=== PATIENT | male | born 1990 | race Caucasian/White ===

== ENCOUNTER 2017-01-31 19:30 | Emergency (ER) | payer SELFPAY ==
[2017-01-31 20:09] VITALS: BP 116/64
--- NOTE | 2017-01-31 22:36 | EDM.PDOC ---
ED HPI GENERAL MEDICAL PROBLEM - General Chief Complaint: Lower Extremity Injury/Pain Stated Complaint: KNEE Time Seen by Provider: 01/31/17 21:30 Source of Information: Reports: Patient History Limitations: Reports: No Limitations - History of Present Illness INITIAL COMMENTS - FREE TEXT/NARRATIVE: C/o pain to outer right knee for past 2 weeks after moving washer. pain worse when bending ocassional radiation down lower leg, Does not recall twisting or knee giving out. States he was in argument at time and just moved washer quickly. Has been wearing knee sleeve but has not taken anything for pain. Knee not reported to feel weak or "give out. Duration: Week(s): Location: Reports: Lower Extremity, Right Quality: Reports: Sharp Severity: Mild Improves with: Reports: Immobilization Worsens with: Reports: Movement Associated Symptoms: Reports: No Other Symptoms Left Knee Pain Score (Numeric/FACES): 4 - Related Data Allergies Allergy/AdvReac Type Severity Reaction Status Date / Time No Known Allergies Allergy Verified 01/31/17 19:59 Home Meds: Home Meds . [No Known Home Meds] 01/31/17 [History] Past Medical History Musculoskeletal History: Reports: Fracture Other Musculoskeletal History: 9th rib, left side Psychiatric History: Reports: Suicide Attempt - Infectious Disease History Infectious Disease History: Reports: Chicken Pox Social & Family History - Family History Family Medical History: Noncontributory - Tobacco Use Smoking Status *Q: Current Every Day Smoker Years of Tobacco use: 7 Packs/Tins Daily: 0.3 - Caffeine Use Caffeine Use: Reports: Coffee - Recreational Drug Use Recreational Drug Use: Yes Review of Systems - Review of Systems Review Of Systems: ROS reveals no pertinent complaints other than HPI. Musculoskeletal: Reports: Joint Pain (right knee). Denies: Joint Swelling Skin: Reports: No Symptoms Trauma Exam - Physical Exam Exam: See Below Exam Limited By: No Limitations General Appearance: Reports: Alert, No Apparent Distress Head: Reports: Atraumatic, Normocephalic Eyes: Bilateral Eye: EOMI Ears: Reports: Normal External Exam Throat/Mouth: Reports: Normal Voice Neck: Reports: Full Range of Motion Cardiovascular: Reports: Normal Peripheral Pulses Extremities: No Evidence of Injury, Joint Effusion (slight crepitus ), Pain with Movement (right lateral knee greatest with flexion beyond approximately 75 depgrees. mild discomfort with lateral stess. no laxity.) Neurologic: Reports: Alert, Normal Mood/Affect, Oriented x 3 Skin: Reports: Normal Color, Warm/Dry. Denies: Ecchymosis Course - Vital Signs Last Recorded V/S: Last Vital Signs Temp 99.3 F 01/31/17 20:00 Pulse 67 01/31/17 20:00 Resp 18 01/31/17 20:00 BP 116/64 01/31/17 20:00 Pulse Ox 98 01/31/17 20:00 - Radiology Interpretation Free Text/Narrative:: right knee, mild effusion no fracture dislocation Departure - Departure Time of Disposition: 22:33 Disposition: Home, Self-Care 01 Condition: good Clinical Impression: Sprain of knee - Discharge Information Instructions: Knee Sprain, [id number] Forms: ED Department Discharge Additional Instructions: tylenol or ibuprofen for discomfort ice to knee 15-20 minutes per use knee sleeve or chanel wrap to knee for comfort follow up in clinic 2 weeks if continued pain
== END 2017-01-31 22:38 | disposition home or self-care (01) ==
LOC: DL.ED 19:30
DX: S83.91XA Sprain of unspecified site of right knee, initial encounter (principal); F17.210 Nicotine dependence, cigarettes, uncomplicated; X58.XXXA Exposure to other specified factors, initial encounter
CPT/HCPCS: 73562-LT; 99282; 99283

== ENCOUNTER 2019-11-08 17:06 | Emergency (ER) | payer SELFPAY ==
[2019-11-08 17:40] VITALS: BP 126/85; PULSE 71
[2019-11-08 18:39] LABS: CHLORIDE,CL 105 mmol/L (101-111); SODIUM,NA 139 mmol/L (135-145)
--- NOTE | 2019-11-08 19:02 | EDM.PDOC ---
Scribed by Adela Lynn 11/08/19 1780 for Aldair Martino NP ED HPI GENERAL MEDICAL PROBLEM - General Chief Complaint: ENT Problem Stated Complaint: WEAK/HEADACHE/DIZZY/NAUSEA Time Seen by Provider: 11/08/19 18:02 Source of Information: Reports: Patient, RN, RN Notes Reviewed History Limitations: Reports: No Limitations - History of Present Illness INITIAL COMMENTS - FREE TEXT/NARRATIVE: Patient is a 28-year-old male who presents to ER with complaints of sinus pressures x3 weeks, dizziness, weakness and headache and runny nose on and off x9 days. He denies any fever, chills, chest pain, palpitations, vomiting, diarrhea, constipation. He admits to nausea and shortness of breath. He took 2 Excedrin migraine without relief. He smokes cigarettes and marijuana. Denies alcohol consumption or illicit drugs. Onset: Gradual Duration: Constant Location: Reports: Generalized Quality: Reports: Ache Severity: Mild Improves with: Reports: None Worsens with: Reports: None Associated Symptoms: Reports: No Other Symptoms Treatments DEVELOPMENT SPEC: Reports: Other (see below) Other Treatments DEVELOPMENT SPEC: excedrin migraine formula 2 tabs Right Frontal Head Pain Score (Numeric/FACES): 3 - Related Data Allergies Allergy/AdvReac Type Severity Reaction Status Date / Time No Known Allergies Allergy Verified 11/08/19 17:40 Home Meds: Home Meds . [No Known Home Meds] 01/31/17 [History] Past Medical History HEENT History: Reports: Head, Sinusitis, Other (See Below) Other HEENT History: migraines Cardiovascular History: Reports: None Respiratory History: Reports: None Gastrointestinal History: Reports: None Genitourinary History: Reports: None Musculoskeletal History: Reports: Fracture Other Musculoskeletal History: 9th rib, left side Neurological History: Reports: Migraines Psychiatric History: Reports: None, Suicide Attempt Endocrine/Metabolic History: Reports: None Hematologic History: Reports: None Immunologic History: Reports: None Oncologic (Cancer) History: Reports: None Dermatologic History: Reports: None - Infectious Disease History Infectious Disease History: Reports: Chicken Pox - Past Surgical History Head Surgeries/Procedures: Reports: None HEENT Surgical History: Reports: None Cardiovascular Surgical History: Reports: None Respiratory Surgical History: Reports: None GI Surgical History: Reports: None Social & Family History - Family History Family Medical History: Noncontributory - Tobacco Use Smoking Status *Q: Current Every Day Smoker Years of Tobacco use: 12 Packs/Tins Daily: 0.5 Second Hand Smoke Exposure: No - Caffeine Use Caffeine Use: Reports: Coffee, Energy Drinks, Tea - Recreational Drug Use Recreational Drug Use: Yes Recreational Drug Type: Reports: Marijuana/Hashish ED ROS GENERAL - Review of Systems Review Of Systems: Comprehensive ROS is negative, except as noted in HPI. ED EXAM, DIZZINESS - Physical Exam Exam: See Below Exam Limited By: No Limitations General Appearance: Alert, WD/WN, No Apparent Distress Eye Exam: Bilateral Eye: EOMI, Normal Inspection, PERRL Ears: Normal External Exam, Normal Canal, Hearing Grossly Normal, Normal TMs Nose: Normal Inspection, Normal Mucosa, No Blood Throat/Mouth: Normal Inspection, Normal Lips, Normal Teeth, Normal Gums, Normal Oropharynx, Normal Voice, No Airway Compromise Head Exam: Atraumatic, Normocephalic Neck: Normal Inspection, Supple, Non-Tender, Full Range of Motion Respiratory/Chest: No Respiratory Distress, Lungs Clear, Normal Breath Sounds, No Accessory Muscle Use, Chest Non-Tender Cardiovascular: Normal Peripheral Pulses, Regular Rate, Rhythm, No Edema, No Gallop, No JVD, No Murmur, No Rub GI/Abdominal: Normal Bowel Sounds, Soft, Non-Tender, No Organomegaly, No Distention, No Abnormal Bruit, No Mass (Male) Exam: Deferred Rectal (Males) Exam: Deferred Neurological: Alert, Normal Mood/Affect, Normal Dorsiflexion, CN II-XII Intact, Normal Plantar Flexion, Normal Gait, Normal Reflexes, No Motor/Sensory Deficits , Oriented x 3 Back Exam: Normal Inspection, Full Range of Motion, NT Psychiatric: Normal Affect, Normal Mood Skin Exam: Warm, Dry, Intact, Normal Color, No Rash Course - Vital Signs Last Recorded V/S: Last Vital Signs Temp 98.5 F 11/08/19 17:34 Pulse 71 11/08/19 17:34 Resp 18 11/08/19 17:34 BP 126/85 11/08/19 17:34 Pulse Ox 98 11/08/19 17:34 - Orders/Labs/Meds Orders: Active Orders 24 hr Category Date Time Status Chest 2V [CR] Stat Exams 11/08/19 18:12 Ordered Labs: Laboratory Tests 11/08/19 11/08/19 Range/Units 18:16 18:16 WBC 6.6 (5.0-10.0) 10^3/uL RBC 4.50 L (4.6-6.2) 10^6/uL Hgb 13.5 L (14.0-18.0) g/dL Hct 39.8 L (40.0-54.0) % MCV 88.4 (80-100) fL MCH 30.0 (27.0-34.0) pg MCHC 33.9 (33.0-35.0) g/dL Plt Count 217 (150-450) 10^3/uL Neut % (Auto) 46.1 (42.2-75.2) % Lymph % (Auto) 40.4 (20.5-50.1) % [place] % (Auto) 9.3 H (2-8) % Eos % (Auto) 3.3 H (1.0-3.0) % Baso % (Auto) 0.9 (0.0-1.0) % Sodium 139 (135-145) mmol/L Potassium 4.0 (3.6-5.0) mmol/L Chloride 105 (101-111) mmol/L Carbon Dioxide 26.0 (21.0-31.0) mmol/L Anion Gap 12.0 BUN 17 (7-18) mg/dL Creatinine 0.8 (0.6-1.3) mg/dL Est Cr Clr Drug Dosing 121.20 mL/min Estimated GFR (MDRD) > 60 BUN/Creatinine Ratio 21.25 Glucose 81 (74-105) mg/dL Calcium 9.1 (8.4-10.2) mg/dl Total Bilirubin 0.5 (0.2-1.0) mg/dL AST 18 (10-42) IU/L ALT 11 (10-60) IU/L Alkaline Phosphatase 48 (42-121) IU/L Total Protein 7.2 (6.7-8.2) g/dl Albumin 4.8 (3.2-5.5) g/dl Globulin 2.4 Albumin/Globulin Ratio 2.00 - Radiology Interpretation Free Text/Narrative:: Chest x-ray: No acute abnormality. See rad report. - Re-Assessments/Exams Free Text/Narrative Re-Assessment/Exam: Lab and x-ray results discussed with the patient. Encouraged sinus with Netti. RX for Flonase one spray in each nostril b.i.d. sent with patient. Tylenol and Ibuprofen for discomfort. Push fluids. Claritin or Zyrtec 10 mg daily. Departure - Departure Time of Disposition: 19:01 Disposition: Home, Self-Care 01 Condition: Good Clinical Impression: Sinusitis - Discharge Information Instructions: Sinusitis, Adult, [id number] Forms: ED Department Discharge Additional Instructions: Encouraged sinus with Netti. RX for Flonase one spray in each nostril b.i.d. sent with patient. Tylenol and Ibuprofen for discomfort. Push fluids. Claritin or Zyrtec 10 mg daily. Follow up with PCP in the clinic. Sepsis Event Note - Evaluation Sepsis Screening Result: No Definite Risk - Focused Exam Vital Signs: Vital Signs Temp Pulse Resp BP Pulse Ox 11/08/19 17:34 98.5 F 71 18 126/85 98 Date Exam was Performed: 11/08/19 Time Exam was Performed: 19:02 - My Orders Last 24 Hours: My Active Orders 11/08/19 18:12 Chest 2V [CR] Stat - Assessment/Plan Last 24 Hours: My Active Orders 11/08/19 18:12 Chest 2V [CR] Stat I have read and agree with the documentation that has been completed regarding this visit. By signing this record, I attest that the documentation was completed in my physical presence and is an accurate record of the encounter.
== END 2019-11-08 19:10 | disposition home or self-care (01) ==
LOC: DL.ED 17:06
DX: J32.9 Chronic sinusitis, unspecified (principal); F17.210 Nicotine dependence, cigarettes, uncomplicated
CPT/HCPCS: 36415; 71046; 80053; 85025; 87804; 99283; 99285-25

== ENCOUNTER 2020-05-10 16:45 | Emergency (ER) | payer SELFPAY ==
[2020-05-10 19:17] VITALS: BP 103/75; PULSE 77
[2020-05-10] MEDS ORDERED: Ketorolac 30 MG/ML SDV IVPUSH ONE (19:51)
[2020-05-10] MEDS ORDERED: Metoclopramide 10 MG/2 ML SDV IVPUSH ONE (19:52)
[2020-05-10] MEDS ORDERED: diphenhydrAMINE 50 MG/ML SDV IVPUSH ONE (19:52)
[2020-05-10] MEDS ORDERED: Sodium Chloride 0.9% 1,000 ML IV ONE (19:52)
--- NOTE | 2020-05-10 19:59 | EDM.PDOC ---
ED HPI GENERAL MEDICAL PROBLEM - General Chief Complaint: General Stated Complaint: VOMITING,SEVEREHEADACHE,CANT,KEEP,DOWN,FOOORWATER Time Seen by Provider: 05/10/20 19:54 Source of Information: Reports: Patient History Limitations: Reports: No Limitations - History of Present Illness INITIAL COMMENTS - FREE TEXT/NARRATIVE: patient presents with headache, nausea and vomiting since this morning. He has a history of migraine headaches for which he take Excedrin. This has not helped him today. He notes vomiting multiple times today. Locates the headache behind his right eye. It is a constant pain. pain is exacerbated by loud noise and light. Denies neck stiffness, fever, chills, shortness of breath, diarrhea, constipation, abdominal pain. Onset: Today Duration: Constant Location: Reports: Head Quality: Reports: Ache, Dull Associated Symptoms: Reports: Headaches Treatments ANIMAL WARDEN: Reports: Other (see below) (excederin ) Head Pain Score (Numeric/FACES): 10 - Related Data Allergies Allergy/AdvReac Type Severity Reaction Status Date / Time No Known Allergies Allergy Verified 05/10/20 17:17 Home Meds: Home Meds . [No Known Home Meds] 01/31/17 [History] Past Medical History HEENT History: Reports: Head, Sinusitis, Other (See Below) Other HEENT History: migraines Cardiovascular History: Reports: None Respiratory History: Reports: None Gastrointestinal History: Reports: None Genitourinary History: Reports: None Musculoskeletal History: Reports: Fracture Other Musculoskeletal History: 9th rib, left side Neurological History: Reports: Migraines Psychiatric History: Reports: None, Suicide Attempt Endocrine/Metabolic History: Reports: None Hematologic History: Reports: None Immunologic History: Reports: None Oncologic (Cancer) History: Reports: None Dermatologic History: Reports: None - Infectious Disease History Infectious Disease History: Reports: Chicken Pox - Past Surgical History Head Surgeries/Procedures: Reports: None HEENT Surgical History: Reports: None Cardiovascular Surgical History: Reports: None Respiratory Surgical History: Reports: None GI Surgical History: Reports: None Social & Family History - Family History Family Medical History: Noncontributory - Tobacco Use Smoking Status *Q: Current Every Day Smoker Years of Tobacco use: 16 Packs/Tins Daily: 1 - Caffeine Use Caffeine Use: Reports: Coffee - Recreational Drug Use Recreational Drug Use: Yes Recreational Drug Type: Reports: Marijuana/Hashish ED ROS GENERAL - Review of Systems Review Of Systems: See Below Constitutional: Reports: No Symptoms HEENT: Reports: No Symptoms Respiratory: Reports: No Symptoms Cardiovascular: Reports: No Symptoms Endocrine: Reports: No Symptoms GI/Abdominal: Reports: Nausea, Vomiting. Denies: Black Stool, Bloody Stool, Diarrhea, Melena : Reports: No Symptoms Musculoskeletal: Reports: No Symptoms Skin: Reports: No Symptoms Neurological: Reports: Headache. Denies: Numbness, Paresthesia Psychiatric: Reports: No Symptoms Hematologic/Lymphatic: Reports: No Symptoms Immunologic: Reports: No Symptoms ED EXAM, GENERAL - Physical Exam Exam: See Below General Appearance: Mild Distress Eye Exam: Bilateral Eye: Normal Inspection, PERRL Ear Exam: Bilateral Ear: Auricle Normal, Canal Normal, TM normal Nose: Normal Inspection, Normal Mucosa, No Blood Throat/Mouth: Normal Inspection, Normal Lips, Normal Teeth, Normal Gums, Normal Oropharynx, Normal Voice, No Airway Compromise Head: Atraumatic, Normocephalic. No: Sinus Tenderness Neck: Normal Inspection, Supple, Non-Tender, Full Range of Motion Respiratory/Chest: No Respiratory Distress, Lungs Clear, Normal Breath Sounds, No Accessory Muscle Use, Chest Non-Tender Cardiovascular: Normal Peripheral Pulses, Regular Rate, Rhythm, No Edema, No Gallop, No JVD, No Murmur, No Rub GI/Abdominal: Normal Bowel Sounds, Soft, Non-Tender, No Organomegaly, No Distention, No Abnormal Bruit, No Mass (Male) Exam: Deferred Rectal (Males) Exam: Deferred Back Exam: Normal Inspection, Full Range of Motion, NT Extremities: Normal Inspection, Normal Range of Motion, Non-Tender, Normal Capillary Refill, No Pedal Edema Neurological: Alert, Oriented, CN II-XII Intact, Normal Cognition, Normal Gait, Normal Reflexes, No Motor/Sensory Deficits Psychiatric: Normal Affect, Normal Mood Skin Exam: Warm, Dry, Intact, Normal Color, No Rash Lymphatic: No Adenopathy Course - Vital Signs Text/Narrative:: 1 L NS bolus, Reglan, Benadryl and Toradol IV pushes given. Patient feels better. His headache is 2/10 right now. Last Recorded V/S: Last Vital Signs Temp 97.4 F 05/10/20 19:15 Pulse 77 05/10/20 19:15 Resp 18 05/10/20 19:15 BP 103/75 05/10/20 19:15 Pulse Ox 98 05/10/20 19:15 - Orders/Labs/Meds Labs: Laboratory Tests 05/10/20 05/10/20 Range/Units 20:03 20:03 WBC 6.9 (5.0-10.0) 10^3/uL RBC 4.93 (4.6-6.2) 10^6/uL Hgb 14.6 (14.0-18.0) g/dL Hct 42.5 (40.0-54.0) % MCV 86.2 (80-100) fL MCH 29.6 (27.0-34.0) pg MCHC 34.4 (33.0-35.0) g/dL Plt Count 231 (150-450) 10^3/uL Neut % (Auto) 56.3 (42.2-75.2) % Lymph % (Auto) 32.1 (20.5-50.1) % [place] % (Auto) 8.8 H (2-8) % Eos % (Auto) 2.2 (1.0-3.0) % Baso % (Auto) 0.6 (0.0-1.0) % Sodium 143 (136-145) mmol/L Potassium 3.5 (3.5-5.1) mmol/L Chloride 105 (98-107) mmol/L Carbon Dioxide 28 (21-32) mmol/L Anion Gap 13.5 H (7-13) mEq/L BUN 13 (7-18) mg/dL Creatinine 0.77 (0.70-1.30) mg/dL Est Cr Clr Drug Dosing 119.86 mL/min Estimated GFR (MDRD) > 60 BUN/Creatinine Ratio 16.9 (No establ ref range) Glucose 85 (74-99) mg/dL Calcium 9.0 (8.5-10.1) mg/dL Total Bilirubin 0.7 (0.2-1.0) mg/dL AST 13 L (15-37) U/L ALT 17 (16-63) U/L Alkaline Phosphatase 77 (46-116) U/L Total Protein 7.2 (6.4-8.2) g/dL Albumin 4.5 (3.4-5.0) g/dL Globulin 2.7 Albumin/Globulin Ratio 1.7 Meds: Medications Discontinued Medications Generic Name Dose Route Start Last Admin Trade Name Amy PRN Reason Stop Dose Admin Diphenhydramine HCl 25 mg 05/10/20 19:52 05/10/20 20:11 Benadryl IVPUSH 05/10/20 19:53 25 mg ONETIME ONE Administration Sodium Chloride 1,000 mls @ 999 mls/hr 05/10/20 19:52 05/10/20 20:08 Normal Saline IV 05/10/20 20:52 999 mls/hr .BOLUS ONE Administration Ketorolac Tromethamine 30 mg 05/10/20 19:51 05/10/20 20:12 Toradol IVPUSH 05/10/20 19:52 30 mg ONETIME ONE Administration Metoclopramide HCl 10 mg 05/10/20 19:52 05/10/20 20:08 Reglan IVPUSH 05/10/20 19:53 10 mg ONETIME ONE Administration Departure - Departure Time of Disposition: 22:32 Disposition: Home, Self-Care 01 Condition: Good Clinical Impression: Migraine headache Qualifiers: Migraine type: without aura Status migrainosus presence: without status migrainosus Intractability: not intractable Qualified Code(s): G43.009 - Migraine without aura, not intractable, without status migrainosus - Discharge Information Instructions: Recurrent Migraine Headache, [id number] Referrals: PCP,None [Primary Care Provider] - Forms: ED Department Discharge Care Plan Goals: Take Benadryl 25mg, Ibuprofen 800mg and Reglan 10mg when you have severe migraine headaches. Take Excedrin as usual for minor headaches. Drink plenty of water and keep hydrated. Return to ED if symptoms worsens or if you develop fever, chills, dizziness, lightheadedness or numbness or tingling in your hands or feet. Sepsis Event Note (ED) - Evaluation Sepsis Screening Result: No Definite Risk - Focused Exam Vital Signs: Vital Signs Temp Pulse Resp BP Pulse Ox 05/10/20 19:15 97.4 F 77 18 103/75 98 05/10/20 17:14 97.9 F 94 14 120/92 H 99
[2020-05-10 20:31] LABS: ANION GAP 13.5 mEq/L (7-13); CHLORIDE,CL 105 mmol/L (98-107); SODIUM,NA 143 mmol/L (136-145)
== END 2020-05-10 21:39 | disposition home or self-care (01) ==
LOC: DL.ED 16:45
DX: G43.009 Migraine without aura, not intractable, without status migrainosus (principal); F17.210 Nicotine dependence, cigarettes, uncomplicated
CPT/HCPCS: 36415; 80053; 85025; 96361; 96374; 96375; 99283; J1200; J1885; J2765; J7030

== ENCOUNTER 2021-06-03 17:15 | Emergency (ER) | payer SELFPAY ==
--- NOTE | 2021-06-03 17:22 | EDM.PDOC ---
<Vijay Connolly - Last Filed: 06/03/21 18:57> ED HPI GENERAL MEDICAL PROBLEM - General Chief Complaint: Respiratory Problem Stated Complaint: POSSIBLE COVID Time Seen by Provider: 06/03/21 17:22 Source of Information: Reports: Patient History Limitations: Reports: No Limitations - History of Present Illness INITIAL COMMENTS - FREE TEXT/NARRATIVE: Patient is a 30 year old male without significant past medical history who presents to the ER for covid symptoms. He reports non productive cough, runny nose, sore throat, headache. His symptoms started two days ago and are getting worse with time. He denies fever, shortness of breath, loss of taste, loss of smell. Has been using dayquil and honey with little relief of symptoms. Does report midsternal chest pain worse with coughing. throat Pain Score (Numeric/FACES): 4 - Related Data Allergies Allergy/AdvReac Type Severity Reaction Status Date / Time No Known Allergies Allergy Verified 06/03/21 17:37 Home Meds: Home Meds . [No Known Home Meds] 01/31/17 [History] Past Medical History HEENT History: Reports: Head, Sinusitis, Other (See Below) Other HEENT History: migraines Cardiovascular History: Reports: None Respiratory History: Reports: None Gastrointestinal History: Reports: None Genitourinary History: Reports: None Musculoskeletal History: Reports: Fracture Other Musculoskeletal History: 9th rib, left side Neurological History: Reports: Migraines Psychiatric History: Reports: None, Suicide Attempt Endocrine/Metabolic History: Reports: None Hematologic History: Reports: None Immunologic History: Reports: None Oncologic (Cancer) History: Reports: None Dermatologic History: Reports: None - Infectious Disease History Infectious Disease History: Reports: Chicken Pox - Past Surgical History Head Surgeries/Procedures: Reports: None HEENT Surgical History: Reports: None Cardiovascular Surgical History: Reports: None Respiratory Surgical History: Reports: None GI Surgical History: Reports: None Social & Family History - Family History Family Medical History: No Pertinent Family History - Caffeine Use Caffeine Use: Reports: Coffee ED ROS GENERAL - Review of Systems Review Of Systems: See Below Constitutional: Reports: Malaise, Fatigue HEENT: Reports: No Symptoms, Rhinitis, Sinus Problem, Throat Pain Respiratory: Reports: Cough Cardiovascular: Reports: No Symptoms Endocrine: Reports: No Symptoms, Fatigue GI/Abdominal: Reports: No Symptoms. Denies: Abdominal Pain : Reports: No Symptoms Musculoskeletal: Reports: No Symptoms Skin: Reports: No Symptoms Neurological: Reports: No Symptoms Psychiatric: Reports: No Symptoms Hematologic/Lymphatic: Reports: No Symptoms Immunologic: Reports: No Symptoms ED EXAM, GENERAL - Physical Exam Exam: See Below Exam Limited By: No Limitations General Appearance: Alert, No Apparent Distress Ears: Normal External Exam, Normal Canal, Hearing Grossly Normal Nose: Normal Inspection, Nasal Drainage, Clear Rhinorrhea Throat/Mouth: Normal Inspection, Normal Lips, Normal Teeth, Normal Gums, Normal Oropharynx, Normal Voice, No Airway Compromise, Inflammation Head: Atraumatic, Normocephalic Neck: Normal Inspection, Supple, Non-Tender Respiratory/Chest: No Respiratory Distress, Lungs Clear, Normal Breath Sounds Cardiovascular: Normal Peripheral Pulses, Regular Rate, Rhythm, No Gallop, No JVD, No Murmur, No Rub GI/Abdominal: Normal Bowel Sounds, Soft, Non-Tender, No Distention (Male) Exam: Deferred Rectal (Males) Exam: Deferred Back Exam: Normal Inspection Extremities: Normal Inspection Neurological: Alert, Oriented, CN II-XII Intact, Normal Cognition Psychiatric: Normal Affect, Normal Mood Skin Exam: Warm, Dry Lymphatic: No Adenopathy Departure - Departure Time of Disposition: 18:55 Disposition: Home, Self-Care 01 Condition: Good Clinical Impression: Viral URI with cough - Discharge Information *PRESCRIPTION DRUG MONITORING PROGRAM REVIEWED*: Not Applicable *COPY OF PRESCRIPTION DRUG MONITORING REPORT IN PATIENT ERIC: Not Applicable Instructions: Viral Respiratory Infection, Luvl-Um-Ifth Forms: ED Department Discharge Additional Instructions: Recommend symptomatic care Can try cough / cold syrup as needed Return for worsening or new development of symptoms if needed. <Oswaldo Lezama - Last Filed: 06/03/21 18:59> Course - Vital Signs Last Recorded V/S: Last Vital Signs Temp 97.0 F 06/03/21 17:30 Pulse 58 L 06/03/21 17:30 Resp 18 06/03/21 17:30 BP 125/97 H 06/03/21 17:30 Pulse Ox 99 06/03/21 17:30 - Orders/Labs/Meds Orders: Active Orders 24 hr Category Date Time Status CULTURE STREP A CONFIRMATION [RM] Stat Lab 06/03/21 17:25 Results STREP SCRN A RAPID W CULT CONF [RM] Stat Lab 06/03/21 17:25 Results Isolation [COMM] Routine Oth 06/03/21 17:24 Active Labs: Laboratory Tests 06/03/21 Range/Units 17:25 SARS-CoV-2 RNA (SOAL) Negative (NEGATIVE) Rapid Strep: negative Influenza A/B: negative - Re-Assessments/Exams Free Text/Narrative Re-Assessment/Exam: 06/03/21 I saw and evaluated the patient. Discussed with resident and agree with residents findings and plan as documented in the residents note. Sepsis Event Note (ED) - Focused Exam Vital Signs: Vital Signs Temp Pulse Resp BP Pulse Ox 06/03/21 17:30 97.0 F 58 L 18 125/97 H 99 - My Orders Last 24 Hours: My Active Orders 06/03/21 17:24 Isolation [COMM] Routine 06/03/21 17:25 CULTURE STREP A CONFIRMATION [RM] Stat STREP SCRN A RAPID W CULT CONF [RM] Stat - Assessment/Plan Last 24 Hours: My Active Orders 06/03/21 17:24 Isolation [COMM] Routine 06/03/21 17:25 CULTURE STREP A CONFIRMATION [RM] Stat STREP SCRN A RAPID W CULT CONF [RM] Stat
[2021-06-03 17:35] VITALS: BP 125/97; PULSE 58
== END 2021-06-03 19:12 | disposition home or self-care (01) ==
LOC: DL.ED 17:15
DX: J06.9 Acute upper respiratory infection, unspecified (principal); Z20.822 Contact with and (suspected) exposure to COVID-19
CPT/HCPCS: 87081; 87430; 87804; 99283; U0002